=== PATIENT | female | born 1945 | race Caucasian/White ===

== ENCOUNTER 2017-04-20 04:13 | Emergency (ER) | payer MEDICARE, MEDICAID ==
[~2017-04-20] VITALS: Ht 160 cm; Wt 59.0 kg
[~2017-04-20 04:13] MED LIST: ASP81TEC PO; CEPH500C PO; LORA10TA7 PO; LSNP10T PO; WRF2T PO; [UNRECOGNIZED DRUG - CODE]; [UNRECOGNIZED DRUG - REMARK]
[2017-04-20] MEDS ORDERED: LISI40TA (04:30)
[2017-04-20] MEDS ORDERED: APIX2.5T (04:30)
[2017-04-20] MEDS ORDERED: AMLO5TAB2 (04:30)
[2017-04-20] MEDS ORDERED: TRAM-42 PO (04:52)
[2017-04-20] MEDS ORDERED: CYCL5TAB PO (04:52)
--- NOTE | 2017-04-20 04:56 | ED Lower Extremity ---
General Chief Complaint: Lower Extremity Stated Complaint: LEG PAIN,BOTH LEGS Nursing Triage Note: PT REPORTS BILAT POST THIGH PAIN SINCE THIS AM. SHE REPORTS SHE BEGAN HAVING PAIN WHEN SHE WAS DOING HER MORNING EXERCISES. Nursing Sepsis Screen: No Definite Risk Source: patient History of Present Illness Date Seen by Provider: Apr 20, 2017 Time Seen by Provider: 04:30 Initial Comments PT ARRIVES VIA POV --AMBULATES IN ON HER OWN WITHOUT DIFFICULTY PT STATES AT 0400, SHE WAS DOING HER MORNING EXERCISES AND STRETCHING HER LEGS, AND SUDDENLY BEGAN HAVING SEVERE PAIN IN BILATERAL POSTERIOR THIGHS WHEN SHE WAS STRETCHING PT STATES SHE WAS LAYING ON THE COUCH, AND RAISES ONE LEG UP AT A TIME AND TRIES TO STRETCH HER LEG ALL THE WAY TO HER HEAD. STATES WHEN SHE WAS DOING THAT THIS MORNING SHE STARTED HAVING BAD PAIN, EACH TIME WHEN SHE RAISED EACH ONE OF HER LEGS NO RADIATION OF PAIN NO PARESTHESIAS OR MOTOR DEFICITS NO BACK PAIN NO ABDOMINAL PAIN NO SWELLING IN LEGS OR FEET OR PAIN IN CALVES. HAS NOT TAKEN ANYTHING FOR PAIN PCP: DR. ANTOINE Allergies and Home Medications Allergies Coded Allergies: John Known Allergies (Verified Allergy, Unknown, 08/21/05) Home Medications Amlodipine Besylate 5 Mg Tablet, (Reported) Apixaban 2.5 Mg Tablet, (Reported) Aspirin 81 Mg Tabec, 81 MG PO DAILY, (Reported) Cyclobenzaprine HCl 5 Mg Tablet, 5-10 MG PO Q8H, #15 Prescribed by: LAURIE PHILLIPS on 04/20/17 0452 Lisinopril 40 Mg Tablet, (Reported) Tramadol HCl 50 Mg Tablet, 50 MG PO Q4H, #20 Prescribed by: LAURIE PHILLIPS on 04/20/17 0452 Constitutional: no symptoms reported Respiratory: no symptoms reported Cardiovascular: no symptoms reported Gastrointestinal: no symptoms reported Genitourinary: no symptoms reported Musculoskeletal: see HPI Skin: no symptoms reported Psychiatric/Neurological: No Symptoms Reported Past Imbnjlj-Qnqejw-Pwswlo Hx Patient Social History Alcohol Use: Denies Use Recreational Drug Use: No Smoking Status: Never a Smoker 2nd Hand Smoke Exposure: No Recent Foreign Travel: No Contact w/Someone Who Travel: No Recent Infectious Disease Expo: No Recent Hopitalizations: No Seasonal Allergies Seasonal Allergies: No Surgeries History of Surgeries: Yes Surgeries: Appendectomy Respiratory History of Respiratory Disorde: Yes Respiratory Disorders: Pulmonary Embolism Cardiovascular History of Cardiac Disorders: Yes Cardiac Disorders: Deep Vein Thrombosis, Hypertension Neurological History of Neurological Disord: Yes Neurological Disorders: Stroke Reproductive System Hx Reproductive Disorders: No Genitourinary History of Genitourinary Disor: No Gastrointestinal History of Gastrointestinal Di: No Musculoskeletal History of Musculoskeletal Dis: No Endocrine History of Endocrine Disorders: No HEENT History of HEENT Disorders: Yes HEENT Disorders: Cataract Cancer History of Cancer: No Psychosocial History of Psychiatric Problem: No Integumentary History of Skin or Integumenta: No Family Medical History Significant Family History: No Pertinent Family Hx Physical Exam Vital Signs Vital Sign - Last 12Hours 04/20/17 04:15 Temp 98.3 Pulse 110 Resp 20 B/P (MAP) 144/83 (103) Pulse Ox 94 O2 Delivery Room Air Capillary Refill : Less Than 3 Seconds General Appearance: WD/WN, no apparent distress, other (PT SMILING, VERY TALKATIVE, WALKS AND MOVES WITHOUT DIFFICULTY) Cardiovascular: normal peripheral pulses, regular rate, rhythm, no edema, no JVD, no murmur Respiratory: normal breath sounds, no respiratory distress, no accessory muscle use Gastrointestinal: normal bowel sounds, non tender, soft, no organomegaly Back: normal inspection, no CVA tenderness, no vertebral tenderness Hips: bilateral hip non-tender, bilateral hip normal inspection, bilateral hip normal range of motion, bilateral hip no evidence of injury Legs: bilateral leg other (BILATERAL POSTERIOR THIGH MUSCLES WITH TENDERNESS, AND PALPATION REPRODUCES PAIN. NO SWELLING OR BRUISING. DISTAL MOTOR/SENSORY/ VASCULAR INTACT. 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 PT REPEATS THIS WITH THE OTHER LEG. THEN STATES THAT PAIN STARTS THEN AND IS DIRECTLY IN HER POSTERIOR THIGHS, AND WHICH IS WHEN SHE RAISES HER LEG BEYOND 90 DEGREES. Progress/Results/Core Measures Results/Orders My Orders Orders - LAURIE PHILLIPS DO Ketorolac Injection (Toradol Injection) (04/20/17 05:00) Orphenadrine Injection (Norflex Injectio (04/20/17 05:00) Medications Given in ED Current Medications Medications Dose Ordered Sig/Marty Route Start Time Stop Time Status Last Admin Dose Admin Ketorolac Tromethamine 60 mg ONCE ONCE IM 04/20/17 05:00 04/20/17 05:01 04/20/17 04:59 60 MG Orphenadrine Citrate 60 mg ONCE ONCE IM 04/20/17 05:00 04/20/17 05:01 04/20/17 04:59 60 MG Vital Signs/I&O Vital Sign - Last 12Hours 04/20/17 04:15 Temp 98.3 Pulse 110 Resp 20 B/P (MAP) 144/83 (103) Pulse Ox 94 O2 Delivery Room Air Blood Pressure Mean: 103 Departure Impression Impression: Primary Impression: MUSCLE STRAIN OF POSTERIOR THIGHS Additional Impression: BILATERAL HAMSTRING STRAIN Disposition: HOME, SELF-CARE Condition: Stable Departure-Patient Inst. Referrals: ADILSON ANTOINE DO (PCP/Family) Primary Care Physician Patient Instructions: Hamstring Muscle Strain (DC) Add. Discharge Instructions: ALTERNATE ICE AND HEAT TO SORE AREAS AT 20 MINUTE INTERVALS ACTIVITIES TOLERATED FOLLOW UP WITH DR. ANTOINE IN 3-4 DAYS FOR FURTHER CARE All discharge instructions reviewed with patient and/or family. Voiced understanding. Scripts Tramadol HCl (Ultram) 50 Mg Tablet 50 MG PO Q4H, #20 TAB Prov: LAURIE PHILLIPS DO 04/20/17 Cyclobenzaprine HCl (Cyclobenzaprine HCl) 5 Mg Tablet 5-10 MG PO Q8H for Muscle Cramps, #15 TAB Prov: LAURIE PHILLIPS DO 04/20/17 LAURIE PHILLIPS DO Apr 20, 2017 04:56
[2017-04-20] MEDS ORDERED: KETOROLAC 60 MG/2 ML VIAL IM ONE (05:00)
[2017-04-20] MEDS ORDERED: ORPHENADRINE 60 MG/2 ML (NORFLEX) AMP IM ONE (05:00)
[2017-04-20 05:02] VITALS: BP 144/83
== END 2017-04-20 05:03 | disposition home or self-care (01) ==
LOC: EDUNIT# 04:13 → ER 04:16
DX: S76.311A Strain of muscle, fascia and tendon of the posterior muscle group at thigh level, right thigh, initial encounter (principal); S76.312A Strain of muscle, fascia and tendon of the posterior muscle group at thigh level, left thigh, initial encounter; I10 Essential (primary) hypertension; Z86.73 Personal history of transient ischemic attack (TIA), and cerebral infarction without residual deficits; Z79.82 Long term (current) use of aspirin; Z79.01 Long term (current) use of anticoagulants; Z88.1 Allergy status to other antibiotic agents; Z90.49 Acquired absence of other specified parts of digestive tract; Z86.718 Personal history of other venous thrombosis and embolism; X50.0XXA Overexertion from strenuous movement or load, initial encounter; Y93.B9 Activity, other involving muscle strengthening exercises
CPT/HCPCS: 96372; 99284

== ENCOUNTER → 2017-04-22 | Outpatient (CLI) | payer MEDICARE, MEDICAID ==
[~2017-04-22] MED LIST changes: +AMLO5TAB2; +APIX2.5T; +CYCL5TAB PO; +LISI40TA; +TRAM-42 PO
== END ==
LOC: CARD 12:19
PROVIDERS: ATTEND Internal Medicine Cardiovascular Disease
DX: I63.8 Other cerebral infarction (principal); I82.409 Acute embolism and thrombosis of unspecified deep veins of unspecified lower extremity; I10 Essential (primary) hypertension; I26.99 Other pulmonary embolism without acute cor pulmonale
CPT/HCPCS: 93306

== ENCOUNTER → 2018-11-09 | Outpatient (CLI) | payer MEDICARE, MEDICAID ==
[~2018-11-09] MED LIST changes: -AMLO5TAB2; +AMLO5TAB9
== END ==
LOC: CARD 08:05
PROVIDERS: ATTEND Internal Medicine Cardiovascular Disease
DX: Q21.1 Atrial septal defect (principal); I34.0 Nonrheumatic mitral (valve) insufficiency; I63.9 Cerebral infarction, unspecified; I10 Essential (primary) hypertension; I26.99 Other pulmonary embolism without acute cor pulmonale; I82.409 Acute embolism and thrombosis of unspecified deep veins of unspecified lower extremity
CPT/HCPCS: 93306

== ENCOUNTER 2019-04-12 07:20 | Emergency (ER) | payer MEDICARE, MEDICAID ==
[~2019-04-12] VITALS: Ht 152 cm; Wt 48.0 kg
[2019-04-12] MEDS ORDERED: ASPIRIN 81 MG CHEW (CHILDREN'S ASA) PO ONE (07:30)
[2019-04-12 07:41] LABS: BASOPHILS % (AUTO) 0 % (0-10); EOSINOPHILS # (AUTO) 0.1 10^3/uL (0.0-0.3); EOSINOPHILS % (AUTO) 2 % (0-10); HEMATOCRIT 41 % (35-52); HEMOGLOBIN 13.7 G/DL (11.5-16.0); LYMPHOCYTES # (AUTO) 1.7 X 10^3 (1.0-4.0); LYMPHOCYTES % (AUTO) 27 % (12-44); MEAN CORPUSCULAR HEMOGLOBIN 31 PG (25-34); MEAN CORPUSCULAR HGB CONC 33 G/DL (32-36); MEAN CORPUSCULAR VOLUME 94 FL (80-99); MEAN PLATELET VOLUME 9.3 FL (7.4-10.4); MONOCYTES # (AUTO) 0.5 X 10^3 (0.0-1.0); MONOCYTES % (AUTO) 8 % (0-12); NEUTROPHILS # (AUTO) 3.9 X 10^3 (1.8-7.8); NEUTROPHILS % (AUTO) 63 % (42-75); PLATELET COUNT 290 10^3/uL (130-400); RED CELL DISTRIBUTION WIDTH 13.3 % (10.0-14.5); WHITE BLOOD COUNT 6.2 10^3/uL (4.3-11.0)
[2019-04-12 07:53] LABS: PROTHROMBIN TIME PATIENT 13.6 SEC (12.2-14.7)
[2019-04-12 08:00] LABS: ALANINE AMINOTRANSFERASE 13 U/L (0-55); ALBUMIN 4.3 GM/DL (3.2-4.5); ALKALINE PHOSPHATASE 82 U/L (40-136); BILIRUBIN,TOTAL 0.3 MG/DL (0.1-1.0); BUN/CREATININE RATIO 11; CARBON DIOXIDE 23 MMOL/L (21-32); CHLORIDE 106 MMOL/L (98-107); CREATININE SERUM 0.76 MG/DL (0.60-1.30); GFR ESTIMATED > 60; GLUCOSE 105 MG/DL (70-105); MAGNESIUM 2.2 MG/DL (1.6-2.4); POTASSIUM 4.1 MMOL/L (3.6-5.0); SODIUM 140 MMOL/L (135-145)
--- NOTE | 2019-04-12 08:00 | Diagnostic Imaging Report ---
INDICATION: Chest pain FINDINGS: The lungs clear. The heart and vessels normal. There is no effusion or pneumothorax. IMPRESSION: No acute appearing abnormality. Dictated by: Dictated on workstation # [id number]
--- NOTE | 2019-04-12 08:15 | ED Chest Pain ---
General Chief Complaint: Chest Pain Stated Complaint: CHEST/BACK PAIN Nursing Triage Note: PT CO OF CHEST PAIN STARTED THIS AM RATES PAIN 8/ CENTER OF CHEST Nursing Sepsis Screen: No Definite Risk Source: patient Exam Limitations: no limitations History of Present Illness Date Seen by Provider: Apr 12, 2019 Time Seen by Provider: 07:25 Initial Comments Here with report of central chest pain that radiates to the back. Started this morning and has persisted. Worse with deep breathing or coughing. States that it started with a coughing fit. Denies nausea, vomiting or diarrhea. She is on blood thinners for blood clots and does have history of heart failure but no history of heart attack. Denies recent fever, chills or other infective symptoms. Follows with Dr. Lopez and Dr. Antoine. Timing/Duration: 1 hour Severity/Quality: moderate Location: central Radiation: back Activities at Onset: none Prior CP/Workup: echocardiography Modifying Factors: improves with rest NTG SL ALLOY WEIGHER: No Associated Symptoms: back pain; No diaphoresis, No fever/chills, No nausea/vomiting, No shortness of breath, No swelling/lump in chest, No weakness Allergies and Home Medications Allergies Coded Allergies: NKANo Known Allergies (Verified Allergy, Unknown, 08/21/05) Home Medications Aspirin 81 Mg Tabec, 81 MG PO DAILY, (Reported) Cyclobenzaprine HCl 5 Mg Tablet, 5-10 MG PO Q8H Prescribed by: LAURIE PHILLIPS on 04/20/17451 Tramadol HCl 50 Mg Tablet, 50 MG PO Q4H Prescribed by: LAURIE PHILLIPS on 04/20/17451 Patient Home Medication List Home Medication List Reviewed: Yes Review of Systems Review of Systems Constitutional: see HPI; No chills, No fever EENTM: No Symptoms Reported Respiratory: See HPI, Cough; Denies Shortness of Air Cardiovascular: Chest Pain; Denies Edema Gastrointestinal: Denies Diarrhea, Denies Vomiting Genitourinary: No Symptoms Reported Musculoskeletal: no symptoms reported Skin: no symptoms reported Psychiatric/Neurological: No Symptoms Reported All Other Systems Reviewed Negative Unless Noted: Yes Past Bysmgxt-Njgsyq-Pmrlrd Hx Past Med/Social Hx: Reviewed Nursing Past Med/Soc Hx Patient Social History Alcohol Use: Denies Use Smoking Status: Never a Smoker 2nd Hand Smoke Exposure: No Recent Foreign Travel: No Contact w/Someone Who Travel: No Recent Infectious Disease Expo: No Recent Hopitalizations: No Seasonal Allergies Seasonal Allergies: No Past Medical History Surgeries: Yes Appendectomy Respiratory: Yes Pulmonary Embolism Cardiac: Yes Deep Vein Thrombosis, Hypertension Neurological: Yes Stroke Reproductive Disorders: No Genitourinary: No Gastrointestinal: No Musculoskeletal: No Endocrine: No HEENT: Yes Cataract Cancer: No Psychosocial: No Integumentary: No Family Medical History Reviewed Nursing Family Hx No Pertinent Family Hx Physical Exam Vital Signs Vital Signs - First Documented 04/12/19 07:20 Temp 36.5 Pulse 103 Resp 13 B/P (MAP) 166/107 (126) Pulse Ox 96 Capillary Refill : Less Than 3 Seconds Height, Weight, BMI Height: 5'3.00" Weight: 130lbs. oz. [id number]; 20.00 BMI Method:Stated General Appearance: No Apparent Distress, WD/WN HEENT: PERRL/EOMI, Pharynx Normal Neck: Non Tender, Supple Respiratory: Lungs Clear, Normal Breath Sounds Cardiovascular: Regular Rate, Rhythm, No Murmur Gastrointestinal: Non Tender, Soft Extremity: Normal Range of Motion, Non Tender Neurologic/Psychiatric: Alert, Oriented x3 Skin: Normal Color, Warm/Dry Progress/Results/Core Measures Results/Orders Lab Results Laboratory Tests Test 04/12/19 07:25 04/12/19 08:30 04/12/19 10:10 Range/Units White Blood Count 6.2 4.3-11.0 10^3/uL Red Blood Count 4.38 4.35-5.85 10^6/uL Hemoglobin 13.7 11.5-16.0 G/DL Hematocrit 41 35-52 % Mean Corpuscular Volume 94 80-99 FL Mean Corpuscular Hemoglobin 31 25-34 PG Mean Corpuscular Hemoglobin Concent 33 32-36 G/DL Red Cell Distribution Width 13.3 10.0-14.5 % Platelet Count 290 130-400 10^3/uL Mean Platelet Volume 9.3 7.4-10.4 FL Neutrophils (%) (Auto) 63 42-75 % Lymphocytes (%) (Auto) 27 12-44 % Monocytes (%) (Auto) 8 0-12 % Eosinophils (%) (Auto) 2 0-10 % Basophils (%) (Auto) 0 0-10 % Neutrophils # (Auto) 3.9 1.8-7.8 X 10^3 Lymphocytes # (Auto) 1.7 1.0-4.0 X 10^3 Monocytes # (Auto) 0.5 0.0-1.0 X 10^3 Eosinophils # (Auto) 0.1 0.0-0.3 10^3/uL Basophils # (Auto) 0.0 0.0-0.1 10^3/uL Prothrombin Time 13.6 12.2-14.7 SEC INR Comment 1.0 0.8-1.4 Activated Partial Thromboplast Time 27 24-35 SEC D-Dimer 0.59 H 0.00-0.49 UG/ML Sodium Level 140 135-145 MMOL/L Potassium Level 4.1 3.6-5.0 MMOL/L Chloride Level 106 98-107 MMOL/L Carbon Dioxide Level 23 21-32 MMOL/L Anion Gap 11 5-14 MMOL/L Blood Urea Nitrogen 8 7-18 MG/DL Creatinine 0.76 0.60-1.30 MG/DL Estimat Glomerular Filtration Rate > 60 BUN/Creatinine Ratio 11 Glucose Level 105 70-105 MG/DL Calcium Level 10.0 8.5-10.1 MG/DL Corrected Calcium 9.8 8.5-10.1 MG/DL Magnesium Level 2.2 1.6-2.4 MG/DL Total Bilirubin 0.3 0.1-1.0 MG/DL Aspartate Amino Transf (AST/SGOT) 18 5-34 U/L Alanine Aminotransferase (ALT/SGPT) 13 0-55 U/L Alkaline Phosphatase 82 40-136 U/L Myoglobin 49.4 10.0-92.0 NG/ML Troponin I < 0.028 < 0.028 <0.028 NG/ML B-Type Natriuretic Peptide 33.4 <100.0 PG/ML Total Protein 7.0 6.4-8.2 GM/DL Albumin 4.3 3.2-4.5 GM/DL Urine Color YELLOW Urine Clarity CLEAR Urine pH 7.5 5-9 Urine Specific Trumann <=1.005 1.016-1.022 Urine Protein NEGATIVE NEGATIVE Urine Glucose (UA) NEGATIVE NEGATIVE Urine Ketones NEGATIVE NEGATIVE Urine Nitrite NEGATIVE NEGATIVE Urine Bilirubin NEGATIVE NEGATIVE Urine Urobilinogen 0.2 < = 1.0 MG/DL Urine Leukocyte Esterase 1+ H NEGATIVE Urine RBC (Auto) TRACE-I NEGATIVE Urine RBC NONE /HPF Urine WBC 2-5 /HPF Urine Squamous Epithelial Cells RARE /HPF Urine Crystals NONE /LPF Urine Bacteria FEW H /HPF Urine Casts NONE /LPF Urine Mucus NEGATIVE /LPF Urine Culture Indicated YES My Orders Orders - RAMON ESPARZA MD Cbc With Automated Diff (04/12/19 07:24) Magnesium (04/12/19 07:24) Chest 1 View, Ap/Pa Only (04/12/19 07:24) Ekg Tracing (04/12/19 07:24) Comprehensive Metabolic Panel (04/12/19 07:24) Myoglobin Serum (04/12/19 07:24) Protime With Inr (04/12/19 07:24) Partial Thromboplastin Time (04/12/19 07:24) O2 (04/12/19 07:24) Monitor-Rhythm Ecg Trace Only (04/12/19 07:24) Lipid Panel (04/13/19 06:00) Ed Iv/Invasive Line Start (04/12/19 07:24) Fibrin Degradation Products (04/12/19 07:24) Aspirin Chewable Tablet (Baby Aspirin Ch (04/12/19 07:30) BNP (04/12/19 07:31) Troponin I (04/12/19 07:25) Ua Culture If Indicated (04/12/19 08:27) Urine Culture (04/12/19 08:30) Troponin I (04/12/19 10:04) Medications Given in ED Current Medications Medications Dose Ordered Sig/Marty Route Start Time Stop Time Status Last Admin Dose Admin Aspirin 324 mg ONCE ONCE PO 04/12/19 07:30 04/12/19 07:31 DC 04/12/19 07:38 324 MG Vital Signs/I&O 04/12/19 07:20 Temp 36.5 Pulse 103 Resp 13 B/P (MAP) 166/107 (126) Pulse Ox 96 Blood Pressure Mean: 126 Progress Progress Note : Progress Note Seen and evaluated. IV, labs, EKG and chest x-ray ordered. ASA 324 mg by mouth ordered. Monitor patient. Currently without chest pain. Monitor patient. 1000: Repeat on ordered. Initial sets negative and patient has been pain-free. Monitor patient. 1055: Patient is doing better. I do believe that she has a little urinary tract infection and bronchitis as she states that when she coughs she feels the pain but otherwise she doesn't. She is very active and is moving about the ER without any difficulty or significant pain. She follows with Dr. Lopez and will follow-up with him. Discharged home with return precautions. Patient verbalize understanding instructions and agreement with plan. Initial ECG Impression Date: Apr 12, 2019 Initial ECG Impression Time: 07:22 Initial ECG Rate: 97 Initial ECG Rhythm: Normal Sinus Initial ECG Comparisson: Unchanged Comment Sinus rhythm with normal axis. No evidence of ST elevation [place]. Similar to previous of 06/19/12. Interpreted by me. Diagnostic Imaging Diagonstic Imaging: Xray Plain Films/CT/US/NM/MRI: chest Comments [facility] [place] [place] NAME: YUNIER LEIVA [employer] REC#: [id number] PT STATUS: REG ER : 1945 PHYSICIAN: RAMON ESPARZA MD ADMIT DATE: 04/12/19/ER Draft Date of Exam:04/12/19 CHEST 1 VIEW, AP/PA ONLY INDICATION: Chest pain FINDINGS: The lungs clear. The heart and vessels normal. There is no effusion or pneumothorax. IMPRESSION: No acute appearing abnormality. Dictated on workstation # [id number] Dict: 04/12/19 0757 Trans: 04/12/19 0759 BANNER [id number] Interpreted by: LAKISHA GUTIERREZ Electronically signed by: Departure Impression Primary Impression: Chest pain Qualified Codes: R07.9 - Chest pain, unspecified Additional Impressions: Bronchitis Urinary tract infection Qualified Codes: N30.00 - Acute cystitis without hematuria Disposition: HOME, SELF-CARE Condition: Improved Departure-Patient Inst. Decision time for Depature: 11:04 Referrals: ADILSON ANTOINE DO (PCP/Family) Primary Care Physician Patient Instructions: Chest Pain (DC), Acute Bronchitis, Adult (DC), Urinary Tract Infection, Adult (DC) Add. Discharge Instructions: All discharge instructions reviewed with patient and/or family. Voiced understanding. Drinking adequate amount of fluids. Take medications as directed. Continue home medicines as previously prescribed. Follow up with your DrEber in a few days for recheck. Return for worse pain, fever, vomiting, weakness, breathing problems or other concerns as needed. Scripts Cefdinir (Cefdinir) 300 Mg Capsule 300 MG PO BID, #14 CAP 0 Refills Prov: RAMON ESPARZA MD 04/12/19 Copy Copies To 1: SANDI LOPEZ MD, TIMOTHY D MD Apr 12, 2019 08:15
--- NOTE | 2019-04-12 08:29 | NUR ---
PT UP TO VOID NUMEROUS TIMES THIS AM
[2019-04-12 08:42] LABS: BILIRUBIN,URINE NEGATIVE (NEGATIVE); CLARITY,URINE CLEAR; COLOR,URINE YELLOW; GLUCOSE, URINE (UA) NEGATIVE (NEGATIVE); KETONES,URINE NEGATIVE (NEGATIVE); LEUKOCYTE ESTERASE ,URINE 1+ (NEGATIVE); NITRITE,URINE NEGATIVE (NEGATIVE); PH,URINE 7.5 (5-9); PROTEIN,URINE NEGATIVE (NEGATIVE)
[2019-04-12 08:51] LABS: BACTERIA,URINE FEW /HPF; SQUAMOUS EPITHELIAL CELL,UR RARE /HPF
[2019-04-12] MEDS ORDERED: CEFD300C3 PO (11:05)
[2019-04-12 11:08] VITALS: BP 159/97
== END 2019-04-12 11:08 | disposition home or self-care (01) ==
LOC: EDUNIT# 07:20 → ER 07:21
DX: R07.89 Other chest pain (principal); J40 Bronchitis, not specified as acute or chronic; N39.0 Urinary tract infection, site not specified; I10 Essential (primary) hypertension; Z86.73 Personal history of transient ischemic attack (TIA), and cerebral infarction without residual deficits; Z79.82 Long term (current) use of aspirin; Z90.49 Acquired absence of other specified parts of digestive tract; Z86.711 Personal history of pulmonary embolism; Z86.718 Personal history of other venous thrombosis and embolism
CPT/HCPCS: 36415; 71045; 80053; 81000; 83735; 83874; 83880; 84484; 85025; 85379; 85610; 85730; 87088; 93005; 93041